=== PATIENT | female | born 1955 | race Caucasian/White ===

== ENCOUNTER → 2024-03-22 | Outpatient (CLI) | payer MEDICARE, BC, SELFPAY ==
[2024-03-22 13:14] LABS: C-Reactive Protein < 0.4 mg/dL (0.0-0.9); Uric Acid 4.1 mg/dL (3.1-7.8)
[2024-03-22 17:12] LABS: RA Screen Negative (Negative)
[2024-03-29 06:53] LABS: ANA Pattern NUCLEAR, HOMOGENEOUS; ANA Pattern NUCLEAR, SPECKLED; ANA Screen, IFA POSITIVE (NEGATIVE); ANA Titer 1:40 titer
== END | disposition home or self-care (01) ==
LOC: COPL 11:01
PROVIDERS: PCP Family Medicine; Referring Provider Registered Nurse; Visit Provider Registered Nurse
DX: M79.18 Myalgia, other site (principal)
CPT/HCPCS: 36415; 84550; 86038; 86140; 86430

== ENCOUNTER → 2024-08-08 | Outpatient (CLI) | payer MEDICARE, BC, SELFPAY ==
[2024-08-08 09:42] LABS: Basophils # (Auto) 0.1 Thou/mm3 (0.0-0.2); Basophils % (Auto) 1 % (0-2.5); Eosinophils # (Auto) 0.1 Thou/mm3 (0.0-0.5); Eosinophils % (Auto) 1 % (0-10); Hematocrit 38.9 % (36.0-46.0); Hemoglobin 11.9 g/dL (12.0-16.0); Immature Granulocytes % (Auto) 0 % (0-0); Immature Granulocytes Auto 0.02 Thou/mm3 (0.00-0.00); Lymphocytes # (Auto) 1.8 Thou/mm3 (1.0-4.8); Lymphocytes % (Auto) 27 % (10-50); Mean Corpuscular HGB Conc 30.6 g/dl (31.0-37.0); Mean Corpuscular Hemoglobin 29.5 pg (25.0-35.0); Mean Corpuscular Volume 96 fL (80-100); Monocytes # (Auto) 0.4 Thou/mm3 (0.0-0.8); Monocytes % (Auto) 6 % (0-12); Neutrophils # (Auto) 4.2 Thou/mm3 (1.8-7.7); Neutrophils % (Auto) 64 % (37-80); Nucleated Red Blood Cell % 0 /100 WBC (0); Platelet Count 342 Thou/mm3 (140-440); RDW Standard Deviation 78.3 fL (36.4-46.3); Red Blood Count 4.04 Miln/mm3 (4.00-5.20); White Blood Count 6.6 Thou/mm3 (3.6-11.0)
[2024-08-08 09:57] LABS: Alanine Aminotransferase 17 U/L (10-49); Albumin, Serum 4.1 gm/dL (3.4-4.8); Alkaline Phosphatase 44 U/L (46-116); Anion Gap 8 (7-16); Aspartate Amino Transferase 25 U/L (0-34); BUN/Creatinine Ratio 7 Ratio (12-20); Bilirubin,Total 0.2 mg/dL (0.3-1.2); Blood Urea Nitrogen 7 mg/dL (9-23); Calcium 8.9 mg/dL (8.3-10.6); Calcium (Corrected) 8.9 mg/dL (8.5-10.1); Carbon Dioxide 31.3 mMol/L (20.0-31.0); Chloride 106 mMol/L (98-107); Cholesterol 192 mg/dL (132-200); Globulin 2.1 gm/dL (2.3-3.5); Glucose 100 mg/dL (74-106); HDL Cholesterol 48 mg/dL (40-60); LDL Cholesterol,Calculated 89 mg/dL (0-130); Osmolality,Calculated 286 (275-295); Potassium 4.2 mMol/L (3.4-5.1); Sodium 145 mMol/L (136-145); Thyroid Stimulating Hormone 1.38 uIU/mL (0.55-4.78); Total Protein 6.2 gm/dL (5.7-8.2); Triglycerides 276 mg/dL (30-150); eGFR > 60 See Note
[2024-08-08 10:03] LABS: Vitamin B12 514 pg/mL (211-911); Vitamin D 25 Hydroxy Total 40.9 ng/mL (7.3-40.2)
[2024-08-08 10:06] LABS: Glucose Estimated Average 103 mg/dL (80-131); Hemoglobin A1C 5.2 % Hgb (4.8-6.0)
[2024-08-08 13:44] LABS: Collection Type, Urine Clean Catch
[2024-08-08 14:23] LABS: Bilirubin,Urine Negative (Negative); Blood,Urine Negative (Negative); Clarity,Urine Clear (Clear/Hazy); Color,Urine Lt-Yellow (Lt Yel-Yel); Culture Indicated,Urine Not Indicated; Glucose, Urine Negative (Negative); Ketones,Urine Negative (Negative); Leukocyte Esterase,Urine Positive (Negative); Nitrite,Urine Negative (Negative); Protein,Urine Negative (Neg - Trace); RBC,Urine 2 /hpf (0-3); Specific Gravity,Urine 1.011 (1.001-1.035); Squamous Epithelial Cell,Urine 1 /hpf (0-5); Urobilinogen,Urine Negative mg/dL (0.0-1.0); WBC,Urine 8 /hpf (0-5)
== END | disposition home or self-care (01) ==
LOC: COPL 08:35
PROVIDERS: PCP Family Medicine; Referring Provider Registered Nurse; Visit Provider Registered Nurse
DX: Z00.00 Encounter for general adult medical examination without abnormal findings (principal); J44.9 Chronic obstructive pulmonary disease, unspecified; E78.2 Mixed hyperlipidemia; R73.03 Prediabetes; M79.18 Myalgia, other site
CPT/HCPCS: 36415; 80053; 80061; 81001; 82306; 82607; 83036; 84443; 85025

== ENCOUNTER → 2024-09-27 | Outpatient (CLI) | payer MEDICARE, BC, SELFPAY ==
[2024-09-27 17:53] LABS: Basophils # (Auto) 0.1 Thou/mm3 (0.0-0.2); Basophils % (Auto) 1 % (0-2.5); Eosinophils # (Auto) 0.1 Thou/mm3 (0.0-0.5); Eosinophils % (Auto) 2 % (0-10); Hematocrit 38.4 % (36.0-46.0); Hemoglobin 12.2 g/dL (12.0-16.0); Immature Granulocytes Auto 0.01 Thou/mm3 (0.00-0.00); Iron 79 mcg/dL (50-170); Lymphocytes # (Auto) 2.5 Thou/mm3 (1.0-4.8); Lymphocytes % (Auto) 41 % (10-50); Mean Corpuscular HGB Conc 31.8 g/dl (31.0-37.0); Mean Corpuscular Hemoglobin 31.7 pg (25.0-35.0); Mean Corpuscular Volume 100 fL (80-100); Monocytes # (Auto) 0.6 Thou/mm3 (0.0-0.8); Monocytes % (Auto) 9 % (0-12); Neutrophils # (Auto) 2.9 Thou/mm3 (1.8-7.7); Neutrophils % (Auto) 47 % (37-80); Nucleated Red Blood Cell # 0.00 Thou/mm3 (0.00-0.00); Nucleated Red Blood Cell % 0 /100 WBC (0); Percent Iron Saturation 23 % (20-55); Platelet Count 245 Thou/mm3 (140-440); RDW Standard Deviation 59.1 fL (36.4-46.3); Red Blood Count 3.85 Miln/mm3 (4.00-5.20); Total Iron Binding Capacity 335 mcg/dL (250-425); Unsaturated Iron Binding 256 (225-295); White Blood Count 6.1 Thou/mm3 (3.6-11.0)
[2024-09-27 17:59] LABS: Alanine Aminotransferase 19 U/L (10-49); Albumin, Serum 4.0 gm/dL (3.4-4.8); Albumin/Globulin Ratio 2.2 (1.2-2.2); Alkaline Phosphatase 41 U/L (46-116); Anion Gap 8 (7-16); Aspartate Amino Transferase 28 U/L (0-34); BUN/Creatinine Ratio 9 Ratio (12-20); Bilirubin,Total < 0.2 mg/dL (0.3-1.2); Blood Urea Nitrogen 10 mg/dL (9-23); C-Reactive Protein < 0.5 mg/dL (0.0-0.9); Calcium 9.0 mg/dL (8.3-10.6); Calcium (Corrected) 9.0 mg/dL (8.5-10.1); Carbon Dioxide 27.9 mMol/L (20.0-31.0); Chloride 104 mMol/L (98-107); Creatinine (Component) 1.1 mg/dL (0.6-1.3); Globulin 1.8 gm/dL (2.3-3.5); Glucose 103 mg/dL (74-106); Osmolality,Calculated 278 (275-295); Potassium 4.2 mMol/L (3.4-5.1); Sodium 140 mMol/L (136-145); Total Protein 5.8 gm/dL (5.7-8.2); eGFR 54 See Note
[2024-09-27 20:54] LABS: Vitamin D 25 Hydroxy Total 54.6 ng/mL (7.3-40.2)
[2024-09-28 16:32] LABS: Vitamin B12 651 pg/mL (211-911)
[2024-10-03 07:04] LABS: CCP Antibody (IgG)* <16 Units
== END | disposition home or self-care (01) ==
LOC: COPL 16:25
PROVIDERS: PCP Registered Nurse; Referring Provider Nurse Practitioner Family; Visit Provider Nurse Practitioner Family
DX: M25.59 Pain in other specified joint (principal); E55.0 Rickets, active; R53.83 Other fatigue
CPT/HCPCS: 36415; 80053; 82306; 82607; 83540; 83550; 85025; 86140; 86200

== ENCOUNTER → 2025-01-10 | Outpatient (CLI) | payer MEDICARE, BC, SELFPAY ==
[2025-01-10 14:46] LABS: Alanine Aminotransferase 12 U/L (10-49); Albumin, Serum 4.4 gm/dL (3.4-4.8); Albumin/Globulin Ratio 2.3 (1.2-2.2); Alkaline Phosphatase 36 U/L (46-116); Anion Gap 8 (7-16); Aspartate Amino Transferase 18 U/L (0-34); BUN/Creatinine Ratio 13 Ratio (12-20); Bilirubin,Total 0.2 mg/dL (0.3-1.2); Blood Urea Nitrogen 10 mg/dL (9-23); Calcium 9.0 mg/dL (8.3-10.6); Calcium (Corrected) 9.0 mg/dL (8.5-10.1); Carbon Dioxide 27.7 mMol/L (20.0-31.0); Chloride 105 mMol/L (98-107); Creatinine (Component) 0.8 mg/dL (0.6-1.3); Globulin 1.9 gm/dL (2.3-3.5); Glucose 95 mg/dL (74-106); Osmolality,Calculated 280 (275-295); Potassium 4.3 mMol/L (3.4-5.1); Sodium 141 mMol/L (136-145); Total Protein 6.3 gm/dL (5.7-8.2); eGFR > 60 See Note
== END | disposition home or self-care (01) ==
LOC: COPL 12:38
PROVIDERS: PCP Family Medicine; Referring Provider Registered Nurse; Visit Provider Registered Nurse
DX: R79.89 Other specified abnormal findings of blood chemistry (principal)
CPT/HCPCS: 36415; 80053

== ENCOUNTER 2025-01-29 11:53 | Emergency (ER) | payer MEDICARE, BC, SELFPAY ==
[2025-01-29 11:53] VITALS: BMI 40.7
[2025-01-29 12:10] VITALS: BP 166/98; PULSE 100; RESP 26; TEMP 36.8; O2SAT 94
--- NOTE | 2025-01-29 12:21 | XR_ITS ---
EXAMINATION: PA lateral chest 2 views TECHNIQUE: Upright PA lateral chest 2 views Date and time: January 29, 2025, 12:48 p.m., comparison January 01, 2024 INDICATIONS: Shortness of breath and coughing beginning 3 days ago. FINDINGS: Normal heart size Significant hyperexpansion. Bibasilar pneumonia Severe osteopenia IMPRESSION: COPD Significant bibasilar pneumonia
--- NOTE | 2025-01-29 12:21 | EKG_ITS ---
[facility] Test Date: 2025-01-29 Pat Name: NELSON BOSS Department: Room: - Gender: Female Assistant Drafter: : [id number] Requested By: Tarik Parsons Order Number: [id number] Reading MD: Tarik Parsons Measurements Intervals [place] Rate: 96 P: 33 WY: 113 QRS: -22 QRSD: 83 T: 71 QT: 333 QTc: 421 Interpretive Statements SINUS RHYTHM WITH SINUS ARRHYTHMIA WITH SHORT [place]Y INTERVAL BORDERLINE LEFT AXIS DEVIATION [QRS AXIS < -20] MODERATE T-WAVE ABNORMALITY, CONSIDER ANTERIOR ISCHEMIA [-0.1+ mV T-WAVE IN V3/V4] Compared to ECG 07/02/2023 09:49:42 Short [place]Y interval now present T-wave abnormality now present Possible ischemia now present /store/S0/[id number]/ecg/[id number].pdf
--- NOTE | 2025-01-29 12:52 | PD.EDRME ---
Rapid Medical Screening Exam RME Arrival date/time: 01/29/25 11:53 Chief Complaint: Flu Like Symptoms Time Seen by Provider: 01/29/25 12:13 Vital signs: Vital Signs Temperature 98.2 F 01/29/25 12:10 Pulse Rate 100 01/29/25 12:10 Respiratory Rate 26 H 01/29/25 12:10 Blood Pressure 166/98 H 01/29/25 12:10 Pulse Oximetry (%) 94 L 01/29/25 12:10 Oxygen Delivery Method Nasal Cannula 01/29/25 12:10 Oxygen Flow Rate 2 01/29/25 12:10 RME Narrative: 69-year-old female with past ministry of COPD usually on 2 L has had to increase her oxygen to 4 L is complaining of cough and shortness of breath for the past 2 days. I briefly performed a screening evaluation to initiate work-up and expedite care. Complete history, physical exam, and plan of care is deferred to the provider in the main ED. Exam: Head: Normocephalic, atraumatic. Respiratory: Normal effort. No respiratory distress or accessory muscle use. Neuro: Speech normal. Skin: Warm, dry, normal color. Psych: Pleasant. Normal affect. Cooperative. Clinical Impression: Dyspnea
[2025-01-29] MEDS: ACETAMINOPHEN 325 MG TABLET 650 MG PO (13:26)
[2025-01-29 13:39] LABS: Lactate (Lactic Acid) 2.2 mMol/L (0.4-2.0)
[2025-01-29 13:40] VITALS: PULSE 89
[2025-01-29] MEDS: ALBUTEROL RT 2.5 MG/0.5 ML NEBU INH (13:40)
--- NOTE | 2025-01-29 13:42 | EDNOTE_ITS ---
<Statement entered by Iliana Thompson MD - 01/29/25 17:50> As co-signing physician, I was present and available for consult prn. I concur with the plan and care as documented by the midlevel provider. ED General RME/HPI General Chief complaint: Flu Like Symptoms Stated complaint: COUGH X3 DAYS WITH SOB TODAY; HX COPD Time Seen by Provider: 01/29/25 12:13 Arrival date/time: 01/29/25 11:53 CC: Shortness of breath HPI patient presents to the ER after 5 days of shortness of breath patient is COPD year, on home oxygen at 2 L, finally in the last 24 hours turned it up to 3 L because she felt she was not getting enough oxygen . The patient is pursed lip breathing without being aware of it. Patient states she took a breathing treatment of her own 4 days ago but has not taken anyone since. Patient is awake alert oriented denies chest pain headache nausea vomiting diarrhea or fever. RME / HPI RME / HPI narrative: 69-year-old female with past ministry of COPD usually on 2 L has had to increase her oxygen to 4 L is complaining of cough and shortness of breath for the past 2 days. I briefly performed a screening evaluation to initiate work-up and expedite care. Complete history, physical exam, and plan of care is deferred to the provider in the main ED. Exam: Head: Normocephalic, atraumatic. Respiratory: Normal effort. No respiratory distress or accessory muscle use. Neuro: Speech normal. Skin: Warm, dry, normal color. Psych: Pleasant. Normal affect. Cooperative. Impression: Dyspnea Related Data Home Medications ?Medication ?Instructions ?Recorded ?Confirmed clonazepam 0.5 mg tablet 0.5 mg PO BID 04/11/1901/02 acetaminophen 500 mg tablet 1,000 mg PO Q6H PRN Pain 1 03/04/22 01/02/23 albuterol sulfate 90 mcg/actuation 1 inh inhalation Q4 H PRN Shortness 01/02/23 01/02/23 aerosol inhaler Of Breath aripiprazole 2 mg tablet 2 mg PO QDAY 01/02/23 gabapentin 300 mg tablet 300 mg PO QDAY PRN Pain 12/1701/02/23 ipratropium 0.5 mg-albuterol 3 mg 3 ml inhalation Q6H PRN Pain 01/02/23 01/02/23 (2.5 mg base)/3 mL nebulization soln latanoprost 0.005 % eye drops 1 drp ophthalmic (eye) Q PM 01/02/23 01/02/23 omeprazole 40 mg capsule,delayed 40 mg PO QDAY 3 01/02/23 release vilazodone 40 mg tablet (Viibryd) 40 mg PO QDAY 01/02/23 Previous Rx's ?Medication ?Instructions ?Recorded ipratropium 0.5 mg-albuterol 3 mg 3 ml inhalation Q6H PRN wheezing 01/29/25 (2.5 mg base)/3 mL nebulization #90 mL soln levofloxacin 750 mg tablet 750 mg PO Q24H 7 days #7 ta bs 01/29/25 prednisone 20 mg tablet See Taper PO BID 3 days #6 t abs 01/29/25 Allergies Allergy/AdvReac Type Severity Reaction Status Date / Time NKA* Allergy Uncoded 01/29/25 11:56 Review of Systems Review of Systems Narrative Review of Systems: [General: Obese in mild discomfort but not in any acute distress Head normocephalic HEENT: Within acceptable limits Neck is supple nontender Chest equal chest rise nontender to palpation Respiratory: Diminished in the bases, mildly tachypneic no crackles or rubs. Wet nonproductive cough. Pursed lip breathing. CV: Rate rhythm is regular no murmurs rubs or clicks Abdomen is distended secondary to body habitus soft nontender no masses positive bowel sounds all 4 quadrants Back: No CVA tenderness no spinous process tenderness from cervical spine thoracic and lumbar spine Skin: Intact no petechiae rash induration ulceration or crepitus Extremities: Moving all extremity against resistance cap refill less than 2 seconds neurosensory intact Neuro: Awake alert oriented x3 Glascow coma 15 no focal deficits] Course Course Course Narrative: After review the patient at 1543, the patient continues to maintain oxygen saturations of 94% without significant tachycardia tachypnea on 2 L nasal cannula. This time comfortable discharging the patient home on steroids antibiotics and additional breathing treatment medication for her nebulizer. Patient is advised if she does not feel better in 48 to 72 hours to return the emergency room for reevaluation. Patient is in agreement with this plan. Quality Measures none Orders Category Date Time Status Bedside Influenza A&B Antigen Test NOW Care 01/29/25 12:21 Active Continuous EKG monitoring NOW Care 01/29/25 12:21 Active Continuous Pulse Oximetry NOW Care 01/29/25 12:21 Completed EKG (ED ONLY) *Do not use* NOW Care 01/29/25 12:21 Completed Insert IV NOW Care 01/29/25 12:22 Active EKG (ED Only) Stat Exams 01/29/25 12:21 Draft XR chest 2V Stat Exams 01/29/25 12:21 Completed B-Type Natriuretic Peptide Stat Lab 01/29/25 13:18 Completed Blood Culture (Lab) Stat Lab 01/29/25 13:08 Received CBC Stat Lab 01/29/25 13:18 Completed Comprehensive Metabolic Panel Stat Lab 01/29/25 13:18 Completed HCG,Qualitative Serum Stat Lab 01/29/25 13:18 Completed INR [Prothrombin Time with INR] Stat Lab 01/29/25 13:08 Completed Lactic Acid [Lactate (Lactic Acid)] Stat Lab 01/29/25 13:20 Results Troponin I Stat Lab 01/29/25 13:18 Completed ALBUTEROL RT 0.5ml [Proventil Rt 0.5ml] Med 01/29/25 12:22 Discontinued 2.5 mg INH X1 ONE Acetaminophen Tab [Tylenol Tab] Med 01/29/25 12:22 Discontinued 650 mg PO X1 ONE Ipratropium [place] Rt No [Atrovent Rt No] Med 01/29/25 12:22 Discontinued 0.5 mg INH X1 ONE Sodium Chloride Rt No 0.9% [NS Rt No 0.9%] Med 01/29/25 12:22 Active 3 ml INH PRN PRN Sodium Chloride Rt No 0.9% [NS Rt No 0.9%] Med 01/29/25 12:22 Active 3 ml INH PRN PRN Sodium Chloride Rt No 0.9% [NS Rt No 0.9%] Med 01/29/25 12:22 Active 3 ml INH PRN PRN cefTRIAXone/D5w 1gm IV premix [Rocephin/D5w 1gm IV Med 01/29/25 13:45 Discontinued premix] 1 gm in 50 ml IV X1 Vital Signs Vital signs: Vital Signs Temperature 98.2 F 01/29/25 12:10 Pulse Rate 100 12/14/25 12:10 Respiratory Rate 26 H 01/29/25 12:10 Blood Pressure 166/98 H 01/29/25 12:10 Pulse Oximetry (%) 94 L 01/29/25 12:10 Oxygen Delivery Method Nasal Cannula 01/29/25 12:10 Oxygen Flow Rate 2 01/29/25 12:10 Discharge Plan Plan Patient Disposition: HOME (Self Care) Patient condition on transfer: Stable Prescriptions/Referrals Prescriptions/Med Rec: New levofloxacin 750 mg tablet 750 mg PO Q24H 7 Days Qty: 7 0RF ipratropium-albuterol 0.5 mg-3 mg(2.5 mg base)/3 mL solution for nebulization 3 ml inhalation Q6H PRN (Reason: wheezing) Qty: 90 0RF prednisone 20 mg tablet See Taper PO BID 3 Days Qty: 6 0RF Taper: Prednisone Taper 20 mg DAILY for 2 Days and 0 Hour 10 mg DAILY for 2 Days and 0 Hour 5 mg DAILY for 7 Days and 0 Hour No Action clonazepam 0.5 mg Tablet 0.5 mg PO BID latanoprost 0.005 % Drops 1 drp OPHTHALMIC (EYE) QPM ipratropium-albuterol 0.5 mg-3 mg(2.5 mg base)/3 mL Solution For Nebulization 3 ml INHALATION Q6H PRN (Reason: Pain) omeprazole 40 mg Capsule,Delayed Release(Dr/Ec) 40 mg PO QDAY albuterol sulfate 90 mcg/actuation Hfa Aerosol Inhaler 1 inh INHALATION Q4H PRN (Reason: Shortness Of Breath) gabapentin 300 mg Tablet 300 mg PO QDAY PRN (Reason: Pain) Rx Instructions: 300mg; 2 capsules in AM, 1 capsule in the day, 2 capsules in pm as needed aripiprazole 2 mg Tablet 2 mg PO QDAY vilazodone [Viibryd] 40 mg Tablet 40 mg PO QDAY Rx Instructions: must administer with a meal/food acetaminophen [Tylenol Ex Str Rapid Release] 500 mg Tablet 1,000 mg PO Q6H PRN (Reason: Pain) Referrals: Janine Clancy PLANE TABLEMAN [Primary Care Provider] - In 1 week Problem List Clinical Impression: Pneumonia, COPD (chronic obstructive pulmonary disease) Patient/Caregiver Discharge Instructions Education Materials: Treating Pneumonia, Treatment for COPD Additional Instructions: Take all medications as prescribed. If in the next 48 to 72 hours your symptoms worsen return to the emergency room for reevaluation. Print Language: Kinyarwanda Stand Alone Forms: Torrie Award Info., Patient Portal Info Letter VERONIKA/TARIQ Supervising Physician VICTOR HUGO Supervising Physician: Neel Joseph ENP [facility] Clinical Information Provided by: patient Medical Records reviewed [facility] Meds/Rx considered, not ordered None Labs/Rad/Tests considered, not ordered None Chronic Illness/Social Conditions Explain: COPD EKG Interpretation EKG #1: EKG Interpretation: EKG performed at 1230 shows a ventricular rate of 9 6 IN interval 113 QRS of 8 3 QTc of 386 this is sinus rhythm with sinus arrhythmia baseline wander in V4 and V3. Labs Labs: interpreted by in Medication Administration(s) Medication Administration History Sodium Chloride (Sodium Chloride Rt No 0.9% 3 Ml Nebu) 3 ml INH PRN PRN PRN Reason: SOLN Stop: 02/28/25 12:21 Sodium Chloride (Sodium Chloride Rt No 0.9% 3 Ml Nebu) 3 ml INH PRN PRN PRN Reason: SOLN Stop: 02/28/25 12:21 Sodium Chloride (Sodium Chloride Rt No 0.9% 3 Ml Nebu) 3 ml INH PRN PRN PRN Reason: SOLN Stop: 02/28/25 12:21 Discontinued Medications Acetaminophen (Acetaminophen 325 Mg Tablet) 650 mg PO X1 ONE Stop: 01/29/25 12:23 Last Admin: 01/29/25 13:26 Dose: 650 mg Documented By: GARY Albuterol (Albuterol Rt 2.5 Mg/0.5 Ml Nebu) 2.5 mg INH X1 ONE Stop: 01/29/25 12:23 Last Admin: 01/29/25 13:40 Dose: 2.5 mg Documented By: TP Ceftriaxone Sodium/Dextrose (Rocephin/D5w 1gm Iv Premix) 1 gm in 50 mls @ 100 mls/hr IV X1 ONE Stop: 01/29/25 14:14 Last Infusion: 01/29/25 14:43 Dose: Infused Documented By: Admin: 01/29/25 14:13 Dose: 100 mls/hr Documented By: BD Ipratropium [place] (Ipratropium Rt 0.5 Mg/ 2.5 Ml Nebu) 0.5 mg INH X1 ONE Stop: 01/29/25 12:23
[2025-01-29 13:48] VITALS: PULSE 89; RESP 16; O2SAT 96
[2025-01-29 13:49] LABS: Basophils # (Auto) 0.0 Thou/mm3 (0.0-0.2); Basophils % (Auto) 0 % (0-2.5); Eosinophils # (Auto) 0.0 Thou/mm3 (0.0-0.5); Eosinophils % (Auto) 0 % (0-10); Hematocrit 42.9 % (36.0-46.0); Hemoglobin 13.9 g/dL (12.0-16.0); Immature Granulocytes Auto 0.06 Thou/mm3 (0.00-0.00); Lymphocytes # (Auto) 3.0 Thou/mm3 (1.0-4.8); Lymphocytes % (Auto) 20 % (10-50); Mean Corpuscular HGB Conc 32.4 g/dl (31.0-37.0); Mean Corpuscular Hemoglobin 33.3 pg (25.0-35.0); Mean Corpuscular Volume 103 fL (80-100); Monocytes # (Auto) 1.0 Thou/mm3 (0.0-0.8); Monocytes % (Auto) 6 % (0-12); Neutrophils # (Auto) 10.8 Thou/mm3 (1.8-7.7); Neutrophils % (Auto) 73 % (37-80); Nucleated Red Blood Cell # 0.00 Thou/mm3 (0.00-0.00); Nucleated Red Blood Cell % 0 /100 WBC (0); Platelet Count 359 Thou/mm3 (140-440); RDW Standard Deviation 49.0 fL (36.4-46.3); Red Blood Count 4.18 Miln/mm3 (4.00-5.20); White Blood Count 14.8 Thou/mm3 (3.6-11.0)
[2025-01-29 14:01] LABS: HCG,Qualitative Serum Negative
[2025-01-29 14:03] LABS: INR 1.1 (0.9-1.3); Prothrombin Time 11.2 Seconds (9.0-12.2)
[2025-01-29 14:09] LABS: B-Type Natriuretic Peptide 20 pg/mL (0-100)
[2025-01-29 14:11] LABS: Alanine Aminotransferase 20 U/L (10-49); Albumin, Serum 4.6 gm/dL (3.4-4.8); Albumin/Globulin Ratio 1.9 (1.2-2.2); Alkaline Phosphatase 44 U/L (46-116); Anion Gap 11 (7-16); Aspartate Amino Transferase 17 U/L (0-34); BUN/Creatinine Ratio 12 Ratio (12-20); Bilirubin,Total 0.3 mg/dL (0.3-1.2); Blood Urea Nitrogen 11 mg/dL (9-23); Calcium 9.4 mg/dL (8.3-10.6); Calcium (Corrected) 9.4 mg/dL (8.5-10.1); Carbon Dioxide 27.5 mMol/L (20.0-31.0); Chloride 103 mMol/L (98-107); Creatinine (Component) 0.9 mg/dL (0.6-1.3); Estimated Creatinine Clearance 68.1 mL/min (>60); Globulin 2.4 gm/dL (2.3-3.5); Glucose 95 mg/dL (74-106); Osmolality,Calculated 280 (275-295); Potassium 3.5 mMol/L (3.4-5.1); Sodium 141 mMol/L (136-145); Total Protein 7.0 gm/dL (5.7-8.2); Troponin I < 0.020 ng/mL (0.0-0.045); eGFR > 60 See Note
[2025-01-29] MEDS: cefTRIAXone/D5w 1gm IV premix 1 GM/50 ML BAG IV (14:13)
[2025-01-29 15:17] VITALS: BP 115/62; PULSE 73; RESP 18; TEMP 36.8; O2SAT 94
[2025-01-29 16:40] LABS: Reflex Lactate? Y
== END 2025-01-29 15:59 | disposition home or self-care (01) ==
PROVIDERS: Physician Assistant; Emergency Provider Emergency Medicine; PCP Registered Nurse
DX: J44.0 Chronic obstructive pulmonary disease with (acute) lower respiratory infection (principal); J18.9 Pneumonia, unspecified organism; I49.8 Other specified cardiac arrhythmias; Z99.81 Dependence on supplemental oxygen
CPT/HCPCS: 36415; 36600; 71046; 80053; 82803; 83605; 83880; 84484; 84703; 85025; 85610; 87040; 87502; 93005; 94640; 96365; 99284; J0696; J7644; A9270; J7611